=== PATIENT | female | born 1935 | race Caucasian/White ===

== ENCOUNTER 2016-11-08 15:22 | Inpatient (IN) ==
[2016-11-09] MEDS: Gabapentin 300 MG CAPSULE PO SCH (19:49)
[2016-11-10 05:18] LABS: Prothrombin Time 10.8 Seconds (9.4-12.1)
[2016-11-10 05:19] LABS: Basophils # 0.1 K/mcL (0.0-0.2); Basophils % 1.2 %; Eosinophils # 0.3 K/mcL (0.0-0.6); Hematocrit 37.2 % (35.3-44.9); Hemoglobin 11.9 g/dL (11.5-15.4); Immature Granulocytes % 0.2 % (0-4); Lymphocytes # 1.7 K/mcL (0.6-4.6); Lymphocytes % 34.4 %; Mean Corpuscular Hemoglobin 29.8 pg (28.0-33.3); Mean Corpuscular Volume 93.2 fL (83.0-100.0); Mean Platelet Volume 10.6 fL (9.4-12.4); Monocytes # 0.5 K/mcL (0.0-1.3); Monocytes % 10.3 %; Neutrophils # 2.4 K/mcL (1.6-8.9); Platelet Count 198 K/mcL (140-400); Red Blood Count 3.99 M/mcL (3.82-4.97); Red Cell Distribution Width 14.5 % (11.5-14.5); Segmented Neutrophils % 48.9 %
[2016-11-10 05:21] LABS: Activated Partial Thrombo Time 28.7 Seconds (26.0-36.0)
[2016-11-10 05:28] LABS: Calcium 9.1 mg/dL (8.6-10.8); Potassium 4.8 mEq/L (3.5-4.5)
[2016-11-10] MEDS: Metoprolol XL (24 HR) Succ 50 MG TAB.ER.24H PO SCH (07:48)
[2016-11-10] MEDS: Gabapentin 300 MG CAPSULE PO SCH ×3 (07:49→21:34)
[2016-11-10] MEDS: Cholecalciferol (D-3) 1,000 UNIT TABLET PO SCH (07:49)
[2016-11-10] MEDS: Aspirin 81 MG TAB.CHEW PO SCH (07:49)
[2016-11-10] MEDS: Lisinopril 20 MG TABLET PO SCH (07:50)
--- NOTE | 2016-11-10 11:12 | Internal Med History&Physical ---
Date of Encounter: 11/10/16 Time of Encounter: 11:10 Assessment and Plan (1) Cerebrovascular accident Current visit: No Status: Acute Patient's here for rehabilitation status post CVA. She will see PT OT TR and speech. Qualifiers: CVA mechanism: unspecified Qualified Code(s): I63.9 - Cerebral infarction, unspecified (2) Hypertension Current visit: No Status: Chronic Blood pressures controlled Qualifiers: Hypertension type: essential hypertension Qualified Code(s): I10 - Essential (primary) hypertension Internal Medicine - H&P: HPI Admitted From: Hospital to Hospital Transfer Plans for Post Hospital Care: Home History of present illness: Ms. Tang is a 81 year old female Past Med Surg Social Fam HX - Past Medical History Medical history: arthritis, atrial fibrillation, GERD, hypertension, peripheral artery disease, TIA Psychiatric history: depression - Past Surgical History Surgical History: vascular surgery - Social History Smoking Status: Current every day smoker Smokeless Tobacco Status: No Alcohol use: none Drug use: none - Family History Mother History Unknown: Yes Adopted: No Age: 73 Living Status: Hx Family Cancer: Yes Internal Medicine - H&P: Meds Atorvastatin Calcium [Lipitor] 80 mg PO HS 01/19/16 [History] Lisinopril [Zestril] 40 mg PO DAILY 01/19/16 [History] Metoprolol XL (24 HR) Succ [Toprol Xl] 50 mg PO DAILY 01/19/16 [History] Omeprazole [PriLOSEC] 20 mg PO DAILY 01/19/16 [History] Oxycodone HCl/Acetaminophen [Percocet 5-325 mg Tablet] 1 tab PO Q8H PRN [History] Rivaroxaban [Xarelto] 20 mg PO DAILY 01/19/16 [History] Ergocalciferol (VITAMIN D2) [Vitamin D2] 50,000 unit PO QWEEK 11/03/16 [History] Ferrous Sulfate 325 mg PO BID 11/05/16 [History] Gabapentin [Neurontin] 300 mg PO TID 11/05/16 [History] Aspirin 81 mg PO DAILY #30 tab.chew 11/09/16 [Rx] Allergies Erythromycin Base Allergy (Verified 11/05/16 15:53) Rash All Systems PM: A 10-system review of systems was performed and is negative for pertinent findings except as documented above in the HPI. - Constitutional Vitals: Temp Pulse Resp BP Pulse Ox 97.9 F 62 16 138/72 97 11/10/16 06:57 11/10/16 06:57 11/10/16 06:57 11/10/16 08:38 11/10/16 06:57 - Head Head exam: Present: atraumatic, normocephalic - Neck Neck exam general surgery: Present: supple, trachea midline. Absent: lymphadenopathy - Respiratory Respiratory exam: Present: CTAB. Absent: accessory muscle use, rales, rhonchi, wheezes - Cardiovascular Cardiovascular exam: Present: RRR, +S1, +S2. Absent: diastolic murmur, gallop, rubs, systolic murmur - GI/Abdominal GI/Abdominal exam: Present: normal bowel sounds, soft, no peritoneal signs. Absent: distended, tenderness Internal Med - H&P Results - Labs CBC & Chem 7: 11/10/16 05:05 11/10/16 05:05 Labs: Short CBC 11/10/16 Range/Units 05:05 WBC 5.0 (4.3-11.1) K/mcL Hgb 11.9 (11.5-15.4) g/dL Hct 37.2 (35.3-44.9) % Plt Count 198 (140-400) K/mcL Neutrophils # 2.4 (1.6-8.9) K/mcL BMP 11/10/16 05:05 Sodium 141 Potassium 4.8 H Chloride 110 H Carbon Dioxide 21 BUN 41 H D Creatinine 1.45 H Glucose 87 Calcium 9.1 Cardiac Enzymes 11/10/16 Range/Units 08:55 Troponin I 0.01 (0-0.03) ng/mL BUN creatinine little bit elevated we will keep an eye on that. Troponin was negative
--- NOTE | 2016-11-10 14:43 | Physcial Medicine-Consult Note ---
Date of Encounter: 11/10/16 Time of Encounter: 14:38 Physical Medicine - AP (1) Cerebrovascular accident Status: Acute Assessment and plan: 1. Ms. Tang has had improvement in function since her CVA. She is progressing well with therapies. We will continue with intensive PT/OT/TR. She will continue with aspirin 81mg daily and xarelto. Estimated length of stay 7-10 days. Code(s): I63.9 - Cerebral infarction, unspecified SNOMED Code(s): 165055267 Physical Medicine - HPI - Data of Consult Consult date: 11/10/16 Requesting Physician: Grant Cisneros DO [facility] Narrative Reason for consult: CVA History of present illness: Ms. Tang is a 81 year old female who presented to the ER on 11/05/16 at [place] with acute onset of right sided weakness and aphasia. Patient was driving her car at the time. Patient has a history of atrial fibrillation and had been on xarelto, but discontinued the medication against medical advice. Patient was a candidate for tPA, but declined due to the associated risk factors. An initial head CT revealed no acute abnormality. MRI of the brain revealed an acute infarct in the posterior left frontal periventricular white matter. She was stabilized and transferred for inpatient rehabilitation. CC: Grant Cisneros DO Past Med Surg Social Fam HX - Past Medical History Medical history: arthritis, atrial fibrillation, GERD, hypertension, peripheral artery disease, TIA Psychiatric history: depression - Past Surgical History Surgical History: vascular surgery - Social History Smoking Status: Current every day smoker Smokeless Tobacco Status: No Alcohol use: none Drug use: none - Family History Mother History Unknown: Yes Adopted: No Age: 73 Living Status: Hx Family Cancer: Yes Medications and Allergies Atorvastatin Calcium [Lipitor] 80 mg PO HS 01/19/16 [History] Lisinopril [Zestril] 40 mg PO DAILY 01/19/16 [History] Metoprolol XL (24 HR) Succ [Toprol Xl] 50 mg PO DAILY 01/19/16 [History] Omeprazole [PriLOSEC] 20 mg PO DAILY 01/19/16 [History] Oxycodone HCl/Acetaminophen [Percocet 5-325 mg Tablet] 1 tab PO Q8H PRN [History] Rivaroxaban [Xarelto] 20 mg PO DAILY 01/19/16 [History] Ergocalciferol (VITAMIN D2) [Vitamin D2] 50,000 unit PO QWEEK 11/03/16 [History] Ferrous Sulfate 325 mg PO BID 11/05/16 [History] Gabapentin [Neurontin] 300 mg PO TID 11/05/16 [History] Aspirin 81 mg PO DAILY #30 tab.chew 11/09/16 [Rx] Allergies Erythromycin Base Allergy (Verified 11/05/16 15:53) Rash - Constitutional Constitutional: Absent: anorexia, chills, daytime sleepiness, fatigue - Cardiovascular Cardiovascular: Absent: chest pain, dyspnea - Respiratory Respiratory: Absent: dyspnea, dyspnea on exertion - Gastrointestinal Gastrointestinal: Absent: abdominal pain, constipation, diarrhea, nausea - Genitourinary Genitourinary: Absent: urinary incontinence - Musculoskeletal Musculoskeletal: Present: muscle weakness - Neurological Neurological: Absent: loss of vision, other visual disturbances Physical Medicine - Exam - Constitutional Vitals: Temp Pulse Resp BP Pulse Ox 97.9 F 62 16 138/72 97 11/10/16 06:57 11/10/16 06:57 11/10/16 06:57 11/10/16 11:02 11/10/16 06:57 General appearance: cooperative, no acute distress Exam: Patient is alert, oriented to person and place. She answers questions appropriately. She is able to follow multistep commands. - Head Additional comments: No facial droop. - Respiratory Respiratory exam: Present: CTAB - Cardiovascular Cardiovascular exam: Present: RRR - GI/Abdominal GI/Abdominal exam: Present: normal bowel sounds, soft. Absent: tenderness - Extremities Exam Extremities exam: Absent: calf tenderness, tenderness - Neurological Exam Neurological exam: Present: oriented X3 Additional comments: Cranial nerves II-XII intact. No facial droop. EOMI intact. No visual field deficits. Reflexes are absent symmetrically in the upper and lower limbs. Motor strength is 5/5 in the left upper limb. Right upper limb motor strength reveals SA 5/5, EF 4/5, EE 4/5, WE 4/5, HI 4-5. Right lower limb strength is 5/ 5. Patient is able to ambulate 150 feet with a wheeled walker with min assist. Physical Medicine - Results - Labs CBC & Chem 7: 11/10/16 05:05 11/10/16 05:05 Labs: Short CBC 11/10/16 Range/Units 05:05 WBC 5.0 (4.3-11.1) K/mcL Hgb 11.9 (11.5-15.4) g/dL Hct 37.2 (35.3-44.9) % Plt Count 198 (140-400) K/mcL Neutrophils # 2.4 (1.6-8.9) K/mcL BMP 11/10/16 05:05 Sodium 141 Potassium 4.8 H Chloride 110 H Carbon Dioxide 21 BUN 41 H D Creatinine 1.45 H Glucose 87 Calcium 9.1 Cardiac Enzymes 11/10/16 Range/Units 08:55 Troponin I 0.01 (0-0.03) ng/mL Consult Discharge Plan - Plan Referrals: Ginger Woodson MD [Primary Care Provider] -
[2016-11-10] MEDS: *HR* OxyCODONE/APAP 5/325 TABLET PO PRN (15:36)
[2016-11-10] MEDS: *HR* Rivaroxaban 15 MG TABLET PO SCH (17:19)
[2016-11-11] MEDS: *HR* OxyCODONE/APAP 5/325 TABLET PO PRN ×3 (00:32→19:29)
[2016-11-11] MEDS: Aspirin 81 MG TAB.CHEW PO SCH (08:38)
[2016-11-11] MEDS: Cholecalciferol (D-3) 1,000 UNIT TABLET PO SCH (08:38)
[2016-11-11] MEDS: Gabapentin 300 MG CAPSULE PO SCH ×3 (08:38→19:29)
[2016-11-11] MEDS: Metoprolol XL (24 HR) Succ 50 MG TAB.ER.24H PO SCH (08:38)
[2016-11-11] MEDS: Lisinopril 20 MG TABLET PO SCH (08:38)
--- NOTE | 2016-11-11 10:43 | Electrocardiograph Report ---
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
--- NOTE | 2016-11-11 12:52 | Internal Med Progress Note ---
Date of Encounter: 11/11/16 Time of Encounter: 12:51 - Assessment and plan (1) Cerebrovascular accident Current Visit: No Status: Acute Qualifiers: CVA mechanism: unspecified Qualified Code(s): I63.9 - Cerebral infarction, unspecified (2) Hypertension Current Visit: No Status: Chronic Assessment and plan: Pressures well controlled Qualifiers: Hypertension type: essential hypertension Qualified Code(s): I10 - Essential (primary) hypertension - Time Spent With Patient less than 15 minutes - Subjective Interval history: Patient is a high functioning level. Working with PT OT TR and speech. - Constitutional Vitals: Temp Pulse Resp BP Pulse Ox 97.4 F L 58 20 112/64 93 11/11/16 06:51 11/11/16 06:51 11/11/16 06:51 11/11/16 06:51 11/11/16 06:51 - Head Head exam: Present: atraumatic, normal inspection, normocephalic - Neck Neck exam general surgery: Present: supple, trachea midline. Absent: lymphadenopathy - Respiratory Respiratory exam: Present: CTAB. Absent: accessory muscle use, rales, rhonchi, wheezes - Cardiovascular Cardiovascular exam: Present: RRR, +S1, +S2. Absent: diastolic murmur, gallop, rubs, systolic murmur - GI/Abdominal GI/Abdominal exam: Present: normal bowel sounds, soft, no peritoneal signs. Absent: distended, tenderness Internal Medicine: Result - Labs CBC & Chem 7: 11/10/16 05:05 11/10/16 05:05 Labs: I will recheck chemistry his BUN and creatinine the only issues - ABG Interpretation ABG results: PT/INR, D-dimer PT 10.8 Seconds (9.4-12.1) 11/10/16 05:05 Consult Discharge Plan - Plan Referrals: Ginger Woodson MD [Primary Care Provider] -
[2016-11-11] MEDS: *HR* Rivaroxaban 15 MG TABLET PO SCH (16:23)
[2016-11-12 05:39] LABS: Calcium 8.4 mg/dL (8.6-10.8); Potassium 5.3 mEq/L (3.5-4.5)
[2016-11-12] MEDS: Aspirin 81 MG TAB.CHEW PO SCH (08:18)
[2016-11-12] MEDS: Gabapentin 300 MG CAPSULE PO SCH ×3 (08:18→20:21)
[2016-11-12] MEDS: Lisinopril 20 MG TABLET PO SCH (08:19)
[2016-11-12] MEDS: Cholecalciferol (D-3) 1,000 UNIT TABLET PO SCH (08:19)
[2016-11-12] MEDS: Metoprolol XL (24 HR) Succ 50 MG TAB.ER.24H PO SCH (08:19)
[2016-11-12] MEDS: *HR* OxyCODONE/APAP 5/325 TABLET PO PRN ×2 (11:52→20:21)
--- NOTE | 2016-11-12 13:18 | Internal Med Progress Note ---
Date of Encounter: 11/12/16 Time of Encounter: 13:14 - Assessment and plan (1) Cerebrovascular accident Current Visit: Yes Status: Acute Assessment and plan: Patient's working with PT OT and TR. Taking the progress Qualifiers: CVA mechanism: unspecified Qualified Code(s): I63.9 - Cerebral infarction, unspecified (2) Hypertension Current Visit: No Status: Chronic Assessment and plan: Blood pressures well controlled Qualifiers: Hypertension type: essential hypertension Qualified Code(s): I10 - Essential (primary) hypertension - Time Spent With Patient less than 15 minutes - Subjective Interval history: Patient is a high functioning level. Working with PT OT TR and speech. - Constitutional Vitals: Temp Pulse Resp BP Pulse Ox 98.6 F 62 18 111/55 94 11/12/16 07:04 11/12/16 07:04 11/12/16 07:04 11/12/16 07:04 11/12/16 07:04 - Head Head exam: Present: atraumatic, normal inspection, normocephalic - Neck Neck exam general surgery: Present: supple, trachea midline. Absent: lymphadenopathy - Respiratory Respiratory exam: Present: CTAB. Absent: accessory muscle use, rales, rhonchi, wheezes - Cardiovascular Cardiovascular exam: Present: RRR, +S1, +S2. Absent: diastolic murmur, gallop, rubs, systolic murmur Internal Medicine: Result - Labs CBC & Chem 7: 11/10/16 05:05 11/12/16 05:20 Labs: BMP 11/12/16 05:20 Sodium 141 Potassium 5.3 H Chloride 111 H Carbon Dioxide 22 BUN 57 H D Creatinine 1.63 H Glucose 89 Calcium 8.4 L Is BUN and creatinine are noted - ABG Interpretation ABG results: PT/INR, D-dimer PT 10.8 Seconds (9.4-12.1) 11/10/16 05:05 Consult Discharge Plan - Plan Referrals: Ginger Woodson MD [Primary Care Provider] -
[2016-11-12] MEDS: *HR* Rivaroxaban 15 MG TABLET PO SCH (17:20)
[2016-11-12] MEDS: Nitroglycerin 0.4 MG TAB.SUBL SL PRN ×2 (22:30→22:45)
[2016-11-12] MEDS ORDERED: Nitroglycerin 1 INCH/GM PACKET TP ONE (23:53)
[2016-11-12] MEDS ORDERED: Aspirin Enteric Coated 325 MG Tablet PO ONE (23:53)
[2016-11-12] MEDS ORDERED: Aspirin 325 MG TABLET PO STA (23:58)
[2016-11-13] MEDS ORDERED: Aspirin 81 MG TAB.CHEW PO STA (00:02)
--- NOTE | 2016-11-13 00:29 | Emergency Department Note ---
Disposition Clinical Impression: Elevated troponin level Chest pain Qualifiers: Chest pain type: unspecified Qualified Code(s): R07.9 - Chest pain, unspecified Disposition: Transfer Short-Term Hosp Time of Disposition: 00:30 Chest Pain HPI - General Source: patient Vital Signs Reviewed: Yes - History of Present Illness HPI Narrative: I was called to the patient's bedside where she is in rehabilitation. The nursing there is a bedside indicated that the patient had had chest pain this evening starting about 1025. This patient had been hospitalized at [facility] for a CVA last week. She was transferred for rehabilitation back here to [place] on the of this month. Nursing indicates that on the she had an hour and a half of chest pain, troponin was normal, and she was kept here for persistent rehabilitation. This evening at 1025 she began having midsternal chest pain with some radiation into her arm. She has a history of atrial fibrillation and is on Xarelto but has not had coronary artery disease that she is aware of. Record review however reveals that she has this in her diagnosis of CAD. Patient has a history of atrial fib. She has pulmonary hypertension. She reported after one nitroglycerin that her chest pain was gone. She had a normal physical examination for me. Awake, alert, conversational, appropriate, comfortable appearing, no carotid bruits, skin normal color without diaphoresis. Lungs diminished at the bases. Patient has a history of COPD. Heart: Normal heart tones without murmur. Irregular periods slow. Abdomen soft active bowel sounds. Body habitus elderly and frail. Risks for coronary disease. Patient has hypercholesterolemia and hypertension with smoking history and COPD. Family medical history unknown. Patient's troponin was elevated at 0.12. I evaluated to EKGs and compared them with old ones. First EKG was done on November 10 which apparently was when she of the first episode of pain. It shows atrial fibrillation with a rate of 51 and no evidence of acute ST-T wave changes. Second EKG evaluated was done tonight at 2128. Which I believe would probably be 20-29 since her pain did not start until 10:30. It also shows atrial fib with nonspecific changes laterally without evidence of ST elevation or signs of acute ischemia. Nursing had spoken with Dr. Kimball the patient's current physician in rehabilitation and he had requested that I see the patient and organize transfer. I have discussed the patient with Dr. walls hospitalist at [facility] we talked about possible heparinization but the patient is on Xarelto. He requested that she be transferred to the heart floor and agreed to accept the patient in transfer. Pt complaint: chest pain - Related Data Home Medications Medication Instructions Recorded Confirmed Atorvastatin Calcium [Lipitor] 80 mg PO HS 01/19/16 11/09/16 Lisinopril [Zestril] 40 mg PO DAILY 01/19/16 11/09/16 Metoprolol XL (24 HR) Succ [Toprol 50 mg PO DAILY 01/19/16 11/09/16 Xl] Omeprazole [PriLOSEC] 20 mg PO DAILY 01/19/16 11/09/16 Oxycodone HCl/Acetaminophen 1 tab PO Q8H PRN 01/19/16 11/09/16 [Percocet 5-325 mg Tablet] Rivaroxaban [Xarelto] 20 mg PO DAILY 01/19/16 11/09/16 Ergocalciferol (VITAMIN D2) 50,000 unit PO QWEEK 11/03/16 11/09/16 [Vitamin D2] Ferrous Sulfate 325 mg PO BID 11/05/16 11/09/16 Gabapentin [Neurontin] 300 mg PO TID 11/05/16 11/09/16 Previous Rx's Medication Instructions Recorded Aspirin 81 mg PO DAILY #30 tab.chew 11/09/16 Allergies Allergy/AdvReac Type Severity Reaction Status Date / Time Erythromycin Base Allergy Rash Verified 11/05/16 15:53 Chest Pain PMH - Past Medical History Medical history: Reports: arthritis, atrial fibrillation, GERD, hypertension, peripheral artery disease, TIA Surgical history: Reports: vascular surgery Psychiatric history: Reports: depression - Social History Smoking Status: Current every day smoker Alcohol use: Reports: none Drug use: Reports: none Course Vital Signs Temperature 98.1 F 11/09/16 17:06 Pulse Rate 68 11/09/16 17:06 Respiratory Rate 11/09/16 17:06 Blood Pressure 160/76 11/09/16 17:06 O2 Sat by Pulse Oximetry 95 11/09/16 17:06 Temperature 97.5 F L 11/12/16 19:44 Pulse Rate 70 11/12/16 19:44 Respiratory Rate 16 11/12/16 19:44 Blood Pressure 125/57 11/12/16 19:44 O2 Sat by Pulse Oximetry 96 11/12/16 19:44 Chest Pain - Lab Data Result diagrams: 11/10/16 05:05 11/12/16 05:20 Lab Results 11/10/16 11/10/16 11/10/16 Range/Units 05:05 05:05 05:05 WBC 5.0 (4.3-11.1) K/mcL RBC 3.99 (3.82-4.97) M/mcL Hgb 11.9 (11.5-15.4) g/dL Hct 37.2 (35.3-44.9) % MCV 93.2 (83.0-100.0) fL MCH 29.8 (28.0-33.3) pg MCHC 32.0 (31.6-35.5) g/dL RDW 14.5 (11.5-14.5) % Plt Count 198 (140-400) K/mcL MPV 10.6 (9.4-12.4) fL Immature Gran % 0.2 (0-4) % Seg Neutrophils % 48.9 % Lymphocytes % 34.4 % Monocytes % 10.3 % Eosinophils % 5.0 % Basophils % 1.2 % Neutrophils # 2.4 (1.6-8.9) K/mcL Lymphocytes # 1.7 (0.6-4.6) K/mcL Monocytes # 0.5 (0.0-1.3) K/mcL Eosinophils # 0.3 (0.0-0.6) K/mcL Basophils # 0.1 (0.0-0.2) K/mcL PT 10.8 (9.4-12.1) Seconds INR 1.0 APTT 28.7 (26.0-36.0) Seconds Sodium 141 (136-145) mEq/L Potassium 4.8 H (3.5-4.5) mEq/L Chloride 110 H (98-109) mEq/L Carbon Dioxide 21 (19-29) mEq/L BUN 41 H D (7-20) mg/dL Creatinine 1.45 H (0.57-1.11) mg/dL Est GFR ( Amer) 42 L (> 60) Est GFR (Non-Af Amer) 34 L (> 60) BUN/Creatinine Ratio 28 H (6-26) Glucose 87 (70-99) mg/dL Calculated Osmolality 301 H (280-300) Calcium 9.1 (8.6-10.8) mg/dL Troponin I (0-0.03) ng/mL 11/10/16 11/12/16 11/12/16 Range/Units 08:55 05:20 22:50 WBC (4.3-11.1) K/mcL RBC (3.82-4.97) M/mcL Hgb (11.5-15.4) g/dL Hct (35.3-44.9) % MCV (83.0-100.0) fL MCH (28.0-33.3) pg MCHC (31.6-35.5) g/dL RDW (11.5-14.5) % Plt Count (140-400) K/mcL MPV (9.4-12.4) fL Immature Gran % (0-4) % Seg Neutrophils % % Lymphocytes % % Monocytes % % Eosinophils % % Basophils % % Neutrophils # (1.6-8.9) K/mcL Lymphocytes # (0.6-4.6) K/mcL Monocytes # (0.0-1.3) K/mcL Eosinophils # (0.0-0.6) K/mcL Basophils # (0.0-0.2) K/mcL PT (9.4-12.1) Seconds INR APTT (26.0-36.0) Seconds Sodium 141 (136-145) mEq/L Potassium 5.3 H (3.5-4.5) mEq/L Chloride 111 H (98-109) mEq/L Carbon Dioxide 22 (19-29) mEq/L BUN 57 H D (7-20) mg/dL Creatinine 1.63 H (0.57-1.11) mg/dL Est GFR ( Amer) 37 L (> 60) Est GFR (Non-Af Amer) 30 L (> 60) BUN/Creatinine Ratio 35 H (6-26) Glucose 89 (70-99) mg/dL Calculated Osmolality 307 H (280-300) Calcium 8.4 L (8.6-10.8) mg/dL Troponin I 0.01 0.12 H* (0-0.03) ng/mL
[2016-11-13 00:36] LABS: INR 1.8; Prothrombin Time 19.6 Seconds (9.4-12.1)
[2016-11-13 00:40] LABS: Basophils # 0.1 K/mcL (0.0-0.2); Basophils % 1.2 %; Eosinophils # 0.2 K/mcL (0.0-0.6); Eosinophils % 4.1 %; Hematocrit 33.2 % (35.3-44.9); Hemoglobin 10.6 g/dL (11.5-15.4); Immature Granulocytes % 0.5 % (0-4); Lymphocytes # 1.6 K/mcL (0.6-4.6); Lymphocytes % 26.3 %; Mean Corpuscular HGB Conc 31.9 g/dL (31.6-35.5); Mean Corpuscular Volume 94.1 fL (83.0-100.0); Mean Platelet Volume 10.9 fL (9.4-12.4); Monocytes # 0.7 K/mcL (0.0-1.3); Monocytes % 11.2 %; Neutrophils # 3.3 K/mcL (1.6-8.9); Platelet Count 201 K/mcL (140-400); Red Blood Count 3.53 M/mcL (3.82-4.97); Red Cell Distribution Width 15.2 % (11.5-14.5); Segmented Neutrophils % 56.7 %
[2016-11-13 00:45] LABS: Albumin 2.9 g/dL (3.5-5.0); Albumin/Globulin Ratio 0.8 (1.1-2.2); Bilirubin,Total 0.2 mg/dL (0.2-1.2); Calcium 8.4 mg/dL (8.6-10.8); Globulin 3.5 g/dL (2.4-3.5); Potassium 5.2 mEq/L (3.5-4.5); Total Protein 6.4 g/dL (6.0-8.3)
[2016-11-13 02:30] VITALS: BP 122/55
--- NOTE | 2016-11-15 16:42 | Electrocardiograph Report ---
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
--- NOTE | 2016-12-13 12:28 | Discharge Summary ---
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 (2) Hypertension Priority: Secondary Status: Chronic Qualifiers: Hypertension type: essential hypertension Qualified Code(s): I10 - Essential (primary) hypertension - Discharge Medications Home Medications: Oxycodone HCl/Acetaminophen [Percocet 5-325 mg Tablet] 1 tab PO Q8H PRN [History] Ergocalciferol (VITAMIN D2) [Vitamin D2] 50,000 unit PO QWEEK 11/03/16 [History] Ferrous Sulfate 325 mg PO BID 11/05/16 [History] Gabapentin [Neurontin] 300 mg PO TID 11/05/16 [History] Aspirin 81 mg PO DAILY #30 tab.chew 11/09/16 [Rx] Sertraline [Zoloft] 100 mg PO DAILY 11/13/16 [History] Atorvastatin [Lipitor] 80 mg PO HS tablet 11/15/16 [Rx] Loratadine [Claritin] 10 mg PO DAILY tablet 11/15/16 [Rx] Metoprolol XL (24 HR) Succ [Toprol Xl] 25 mg PO DAILY tab.er.24h 11/15/16 [Rx] Nitroglycerin 0.4 mg SL Q5MIN PRN #0 tab.subl 11/15/16 [Rx] Omeprazole [PriLOSEC] 20 mg PO DAILY@0630 capsule.dr 11/15/16 [Rx] OxyCODONE/APAP 5/325 [Percocet 5/325 MG] 1 each PO Q8H PRN #6 tablet 11/15/16 [ Rx] Rivaroxaban [Xarelto] 15 mg PO DAILY tablet 11/15/16 [Rx] amLODIPine [Norvasc] 10 mg PO DAILY tablet 11/15/16 [Rx] Allergies/Adverse Reactions: Allergies Erythromycin Base Allergy (Verified 12/07/16 20:28) Rash Date of admission: 11/09/16 16:33 Primary care physician: Ginger [facility] Consults: 11/09/16 16:46 Consult to Occupational Therapy [CONS] Routine Comment: Evaluate, develop and implement POC Reason for Consult: eval and treat Consult to Physical Therapy [CONS] Routine Comment: Evaluate, develop and implement POC Reason for Consult: eval and treat Consult to Recreational Therapy [CONS] Routine Comment: Evaluate, develop and implement POC Consult to Tire Design Engineer [CONS] Routine Reason for SW Consult: for discharge planning Consult to Speech Therapy [CONS] Routine Comment: Evaluate, develop and implement POC Reason for Consult: speech impairment Call Completed: Yes Discharging clinician: Grant Cisneros Anticipated date of discharge: 11/13/16 - Patient Status Disposition: Transfer Short-Term Hosp Functional capacity at discharge: uses cane/walker Overall status at discharge: patient is not back to baseline - Discharge Instructions Follow Up With: Ginger Woodson MD [Primary Care Provider] - - Diet and Activity Activity: ambulate only with your walker Diet: advance to your usual diet Hospital course: Ms. Tang is a 81 year old female - Time Spent with Patient Total time spent providing and/or coordinating discharge services: - Constitutional Vitals: Temp Pulse Resp BP Pulse Ox 98.3 F 48 15 122/55 95 11/13/16 02:26 11/13/16 02:26 11/13/16 02:26 11/13/16 02:26 11/13/16 02:26 - Stroke Contraindication Rehab Services Not Assessed: Refused by Patient / Family
== END 2016-11-13 03:00 | disposition short-term general hospital (02) | DRG 57 ==
LOC: INPGRE 11-09 16:33
PROVIDERS: ADMIT Internal Medicine; ATTEND Internal Medicine

== ENCOUNTER 2016-11-15 14:09 | Inpatient (IN) ==
[2016-11-16] MEDS ORDERED: Nitroglycerin 0.4 MG TAB.SUBL SL PRN (16:45)
[2016-11-16] MEDS ORDERED: Cholecalciferol (D-3) 1,000 UNIT TABLET PO SCH (16:45)
[2016-11-16] MEDS: Gabapentin 300 MG CAPSULE PO SCH (20:22)
[2016-11-16] MEDS: *HR* OxyCODONE/APAP 5/325 TABLET PO PRN (23:18)
[2016-11-17 06:03] LABS: INR 1.2; Prothrombin Time 13.1 Seconds (9.4-12.1)
[2016-11-17 06:06] LABS: Activated Partial Thrombo Time 33.2 Seconds (26.0-36.0)
[2016-11-17 06:12] LABS: Calcium 8.5 mg/dL (8.6-10.8); Potassium 5.4 mEq/L (3.5-4.5)
[2016-11-17 06:20] LABS: Basophils % 0.8 %; Eosinophils # 0.3 K/mcL (0.0-0.6); Eosinophils % 6.1 %; Hemoglobin 8.6 g/dL (11.5-15.4); Immature Granulocytes % 0.4 % (0-4); Lymphocytes # 1.5 K/mcL (0.6-4.6); Lymphocytes % 31.7 %; Mean Corpuscular HGB Conc 33.1 g/dL (31.6-35.5); Mean Corpuscular Hemoglobin 31.2 pg (28.0-33.3); Mean Corpuscular Volume 94.2 fL (83.0-100.0); Monocytes # 0.6 K/mcL (0.0-1.3); Monocytes % 12.6 %; Neutrophils # 2.3 K/mcL (1.6-8.9); Platelet Count 213 K/mcL (140-400); Red Blood Count 2.76 M/mcL (3.82-4.97); Red Cell Distribution Width 15.1 % (11.5-14.5); Segmented Neutrophils % 48.4 %
[2016-11-17] MEDS: *HR* Rivaroxaban 15 MG TABLET PO SCH (10:00)
[2016-11-17] MEDS: amLODIPine 5 MG TABLET PO SCH (10:00)
[2016-11-17] MEDS: Metoprolol XL (24 HR) Succ 25 MG TAB.ER.24H PO SCH (10:00)
[2016-11-17] MEDS: Loratadine 10 MG TABLET PO SCH (10:00)
[2016-11-17] MEDS: Gabapentin 300 MG CAPSULE PO SCH ×3 (10:01→21:15)
[2016-11-17] MEDS: Cholecalciferol (D-3) 1,000 UNIT TABLET PO SCH (10:01)
[2016-11-17] MEDS: Aspirin 81 MG TAB.CHEW PO SCH (10:01)
--- NOTE | 2016-11-17 11:50 | Internal Med History&Physical ---
Date of Encounter: 11/17/16 Time of Encounter: 11:47 Assessment and Plan (1) Cerebrovascular accident Current visit: No Status: Chronic Patient was initially sent here for CVA. She is doing fairly well. Blood experience chest pain. 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 (2) Hypertension Current visit: No Status: Chronic Her pressure is well-controlled Qualifiers: Hypertension type: essential hypertension Qualified Code(s): I10 - Essential (primary) hypertension (3) Atrial fibrillation Current visit: No Status: Chronic Currently seems irregular with no excessive heart rate Qualifiers: Atrial fibrillation type: chronic Qualified Code(s): I48.2 - Chronic atrial fibrillation (4) Confusion Current visit: No Status: Acute Patient is generally alert and oriented Internal Medicine - H&P: HPI Admitted From: Hospital to Hospital Transfer Plans for Post Hospital Care: Home History of present illness: Ms. Tang is a 81 year old female Past Med Surg Social Fam HX - Past Medical History Medical history: arthritis, atrial fibrillation, COPD, CVA, GERD, hypertension, peripheral artery disease, renal disease, TIA Psychiatric history: depression - Past Surgical History Surgical History: angioplasty/stent, vascular surgery - Social History Smoking Status: Current every day smoker Smokeless Tobacco Status: No Alcohol use: none Drug use: none - Family History Mother Adopted: No Living Status: Hx Family Cardiac Disorders: No Hx Family Respiratory Disorders: No Hx Family Cancer: Yes Hx Family GI Disorders: Yes Internal Medicine - H&P: Meds Oxycodone HCl/Acetaminophen [Percocet 5-325 mg Tablet] 1 tab PO Q8H PRN [History] Ergocalciferol (VITAMIN D2) [Vitamin D2] 50,000 unit PO QWEEK 11/03/16 [History] Ferrous Sulfate 325 mg PO BID 11/05/16 [History] Gabapentin [Neurontin] 300 mg PO TID 11/05/16 [History] Aspirin 81 mg PO DAILY #30 tab.chew 11/09/16 [Rx] Sertraline [Zoloft] 100 mg PO DAILY 11/13/16 [History] Atorvastatin [Lipitor] 80 mg PO HS tablet 11/15/16 [Rx] Loratadine [Claritin] 10 mg PO DAILY tablet 11/15/16 [Rx] Metoprolol XL (24 HR) Succ [Toprol Xl] 25 mg PO DAILY tab.er.24h 11/15/16 [Rx] Nitroglycerin 0.4 mg SL Q5MIN PRN #0 tab.subl 11/15/16 [Rx] Omeprazole [PriLOSEC] 20 mg PO DAILY@0630 capsule.dr 11/15/16 [Rx] OxyCODONE/APAP 5/325 [Percocet 5/325 MG] 1 each PO Q8H PRN #6 tablet 11/15/16 [ Rx] Rivaroxaban [Xarelto] 15 mg PO DAILY tablet 11/15/16 [Rx] amLODIPine [Norvasc] 10 mg PO DAILY tablet 11/15/16 [Rx] Allergies Erythromycin Base Allergy (Verified 11/05/16 15:53) Rash All Systems PM: A 10-system review of systems was performed and is negative for pertinent findings except as documented above in the HPI. - Constitutional Vitals: Temp Pulse Resp BP Pulse Ox 97.5 F L 67 14 149/68 93 11/17/16 07:55 11/17/16 10:33 11/17/16 10:33 11/17/16 10:33 11/17/16 10:33 - Head Head exam: Present: atraumatic, normal inspection, normocephalic - Neck Neck exam general surgery: Present: supple, trachea midline. Absent: lymphadenopathy - Cardiovascular Cardiovascular exam: Present: RRR, +S1, +S2. Absent: diastolic murmur, gallop, rubs, systolic murmur Internal Med - H&P Results - Labs CBC & Chem 7: 11/17/16 05:45 11/17/16 05:45 Labs: Short CBC 11/17/16 Range/Units 05:45 WBC 4.8 (4.3-11.1) K/mcL Hgb 8.6 L (11.5-15.4) g/dL Hct 26.0 L (35.3-44.9) % Plt Count 213 (140-400) K/mcL Neutrophils # 2.3 (1.6-8.9) K/mcL BMP 11/17/16 05:45 Sodium 139 Potassium 5.4 H Chloride 111 H Carbon Dioxide 19 BUN 67 H Creatinine 1.55 H Glucose 85 Calcium 8.5 L Lab is noted to chronic renal failure is also noted.
[2016-11-17] MEDS: *HR* OxyCODONE/APAP 5/325 TABLET PO PRN (15:51)
--- NOTE | 2016-11-17 16:50 | Psychological Evaluation ---
Date of Encounter: 11/24/16 Time of Encounter: 10:00 History of Present Illness History of present illness: Ms. Tang is an 81 year old female admitted to [facility] following a stroke which affected her left side. She reported that she developed symptoms of a stroke while driving her daughter to a medical appointment and was fortunate to have been in the area of her own primary care physician. Ms. Tang was seen in an urgent care physician and transfered to a hospital immediately. She was seen on this date to assess her current cognitive and emotional functioning. Past Medical History Medical history: Significant for HTN, renal disease, peripheral artery disease, TIA, atrial fibrillation, GERD, COPD and arthritis. - Psychiatric History Additional Psychiatric History: Ms. Tang denied history of psychiatric hospitalization or mental health counseling. She reported that her primary care physician has prescribed Zoloft in the past when she has struggled with feelings of anger and has been under stress. There is no family history of psychiatric hospitalization or mental health issues. Home Medications and Allergies Oxycodone HCl/Acetaminophen [Percocet 5-325 mg Tablet] 1 tab PO Q8H PRN [History] Ergocalciferol (VITAMIN D2) [Vitamin D2] 50,000 unit PO QWEEK 11/03/16 [History] Ferrous Sulfate 325 mg PO BID 11/05/16 [History] Gabapentin [Neurontin] 300 mg PO TID 11/05/16 [History] Aspirin 81 mg PO DAILY #30 tab.chew 11/09/16 [Rx] Sertraline [Zoloft] 100 mg PO DAILY 11/13/16 [History] Atorvastatin [Lipitor] 80 mg PO HS tablet 11/15/16 [Rx] Loratadine [Claritin] 10 mg PO DAILY tablet 11/15/16 [Rx] Metoprolol XL (24 HR) Succ [Toprol Xl] 25 mg PO DAILY tab.er.24h 11/15/16 [Rx] Nitroglycerin 0.4 mg SL Q5MIN PRN #0 tab.subl 11/15/16 [Rx] Omeprazole [PriLOSEC] 20 mg PO DAILY@0630 capsule. 11/15/16 [Rx] OxyCODONE/APAP 5/325 [Percocet 5/325 MG] 1 each PO Q8H PRN #6 tablet 11/15/16 [ Rx] Rivaroxaban [Xarelto] 15 mg PO DAILY tablet 11/15/16 [Rx] amLODIPine [Norvasc] 10 mg PO DAILY tablet 11/15/16 [Rx] Allergies Erythromycin Base Allergy (Verified 11/05/16 15:53) Rash Social History - Social History Social History: Ms. Tang has been a twice. Her second in 1988. She had 6 children (5 daughters, one son). One of her daughters in 2008 of double pneumonia. One of Ms. Tang's twin daughters lives with her and a new grandbaby (6 days old). Ms. 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 The daughter who lives with her has had a brain aneurysm and relies on Mr. Tang for transportation needs. Ms. Tang reported that she does not have any hobbies or social life aside from family functions. Cognitive/Emotional Assessment - Cognitive Ability Additional Findings: Ms. Tang was alert, attentive and fully oriented. Speech was clear, effective and fluent. Thought processes were logical, coherent and goal- directed. She performed in the mildly impaired range on a measure of attention/ concentration. On a measure of delayed verbal recall, she performed in the moderately impaired range. She exhibited problems with encoding, storage and retrieval of new information. Her performance was increased with multiple choice (recognition) cueing. She performed in the average range on measures of sentence repetition, confrontational naming, mental arithmetic, verbal comprehension, abstract reasoning and social judgment. Ms. Tang appeared aware of her cognitive strengths and weaknesses. - Emotional Status Additional Findings: Ms. Tang was pleasant, friendly and cooperative. She described her mood as "good". She denied symptoms of depression or anxiety. Mood appeared euthymic and affect was appropriate in range and intensity. She offered no complaints except to report that she has a history of chronic back pain. Assessment & Plan - Diagnosis (1) Other specified mental disorders due to known physiological condition - Treatment Plan Treatment Plan/Recommendations: Ms. Tang is scheduled to be discharged home this afternoon. She appears to be coping well from an emotional perspective but is exhibiting some deficits with delayed verbal recall and some mild difficulty with attention/ concentration. We reviewed some compensatory strategies for her concentration and memory. There are no recommendations for additional psychological interventions. Procedures - Session Time Session Start Time: 10:00 Session Stop Time: 10:30
[2016-11-18] MEDS: Gabapentin 300 MG CAPSULE PO SCH ×3 (08:55→21:42)
[2016-11-18] MEDS: Cholecalciferol (D-3) 1,000 UNIT TABLET PO SCH (08:56)
[2016-11-18] MEDS: Loratadine 10 MG TABLET PO SCH (09:06)
[2016-11-18] MEDS: *HR* Rivaroxaban 15 MG TABLET PO SCH (09:06)
[2016-11-18] MEDS: Metoprolol XL (24 HR) Succ 25 MG TAB.ER.24H PO SCH (09:06)
[2016-11-18] MEDS: amLODIPine 5 MG TABLET PO SCH (09:06)
[2016-11-18] MEDS: Aspirin 81 MG TAB.CHEW PO SCH (09:06)
[2016-11-18] MEDS: *HR* OxyCODONE/APAP 5/325 TABLET PO PRN ×2 (09:16→23:15)
--- NOTE | 2016-11-18 13:20 | Internal Med Progress Note ---
Date of Encounter: 11/18/16 Time of Encounter: 13:18 - Assessment and plan (1) Cerebrovascular accident Current Visit: No Status: Chronic Assessment and plan: Patient is showing good progress on her rehabilitation from stroke. 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 (2) Hypertension Current Visit: No Status: Chronic Assessment and plan: Seems to be well-controlled Qualifiers: Hypertension type: essential hypertension Qualified Code(s): I10 - Essential (primary) hypertension (3) Atrial fibrillation Current Visit: No Status: Chronic Assessment and plan: No evidence of uncontrolled heart rate Qualifiers: Atrial fibrillation type: chronic Qualified Code(s): I48.2 - Chronic atrial fibrillation (4) Confusion Current Visit: No Status: Acute Assessment and plan: May be some early dementia with a general confusion I think his been pretty stable - Time Spent With Patient less than 15 minutes - Subjective Interval history: Ms. Rushing is cooperating in getting set up for discharge tomorrow - Constitutional Vitals: Temp Pulse Resp BP Pulse Ox 97.9 F 70 18 138/64 92 11/18/16 07:42 11/18/16 07:42 11/18/16 07:42 11/18/16 07:42 11/18/16 07:42 - Head Head exam: Present: atraumatic, normal inspection, normocephalic - Neck Neck exam general surgery: Present: supple, trachea midline. Absent: lymphadenopathy - Respiratory Respiratory exam: Present: CTAB. Absent: accessory muscle use, rales, rhonchi, wheezes - Skin Skin exam: Present: dry, intact Internal Medicine: Result - Labs CBC & Chem 7: 11/17/16 05:45 11/17/16 05:45 Labs: Lab was stable - ABG Interpretation ABG results: PT/INR, D-dimer PT 13.1 Seconds (9.4-12.1) H 11/17/16 05:45 Consult Discharge Plan - Plan Referrals: Ginger Woodson MD [Primary Care Provider] -
--- NOTE | 2016-11-18 13:51 | Physician Discharge Referral ---
Home Health/Hosp Referral Info Transfer to: Home Health Provider in Charge Post Discharge: PCP - Diagnosis (1) Cerebrovascular accident Priority: Primary Status: Chronic (2) Hypertension Priority: Secondary Status: Chronic (3) Atrial fibrillation Priority: Secondary Status: Chronic (4) Confusion Priority: Secondary Status: Acute - Respiratory Orders Smoking Cessation: Smoking cessation has been advised. For more information, call the [place] Tobacco Quit Line at 3-952-ZHEE-NOW. - Services Needed Following services are medically necessary services: Nursing, Physical Therapy - Transfer Medications Home Medications: Oxycodone HCl/Acetaminophen [Percocet 5-325 mg Tablet] 1 tab PO Q8H PRN [History] Ergocalciferol (VITAMIN D2) [Vitamin D2] 50,000 unit PO QWEEK 11/03/16 [History] Ferrous Sulfate 325 mg PO BID 11/05/16 [History] Gabapentin [Neurontin] 300 mg PO TID 11/05/16 [History] Aspirin 81 mg PO DAILY #30 tab.chew 11/09/16 [Rx] Sertraline [Zoloft] 100 mg PO DAILY 11/13/16 [History] Atorvastatin [Lipitor] 80 mg PO HS tablet 11/15/16 [Rx] Loratadine [Claritin] 10 mg PO DAILY tablet 11/15/16 [Rx] Metoprolol XL (24 HR) Succ [Toprol Xl] 25 mg PO DAILY tab.er.24h 11/15/16 [Rx] Nitroglycerin 0.4 mg SL Q5MIN PRN #0 tab.subl 11/15/16 [Rx] Omeprazole [PriLOSEC] 20 mg PO DAILY@0630 capsule. 11/15/16 [Rx] OxyCODONE/APAP 5/325 [Percocet 5/325 MG] 1 each PO Q8H PRN #6 tablet 11/15/16 [ Rx] Rivaroxaban [Xarelto] 15 mg PO DAILY tablet 11/15/16 [Rx] amLODIPine [Norvasc] 10 mg PO DAILY tablet 11/15/16 [Rx] Allergies/Adverse Reactions: Allergies Erythromycin Base Allergy (Verified 11/05/16 15:53) Rash Certification: Further, I certify that my clinical findings support that this patient is homebound (i.e. absences from home require considerable and taxing effort and are for medical reasons or mormon services or infrequently or short duration when for other reasons) because: Homebound Reason: Patient requires assistance of a person or device to safely leave home Attestation: My signature below is to certify that this patient is under my care and that I, or nurse practitioner, or a physician's community program assistant working with me, has a face-to -face encounter with this patient.
[2016-11-19 05:21] LABS: Hematocrit 24.1 % (35.3-44.9); Hemoglobin 7.8 g/dL (11.5-15.4); Mean Corpuscular HGB Conc 32.4 g/dL (31.6-35.5); Mean Corpuscular Volume 95.6 fL (83.0-100.0); Mean Platelet Volume 10.6 fL (9.4-12.4); Platelet Count 232 K/mcL (140-400); Red Blood Count 2.52 M/mcL (3.82-4.97)
[2016-11-19 05:34] LABS: Calcium 8.4 mg/dL (8.6-10.8); Potassium 5.2 mEq/L (3.5-4.5)
[2016-11-19 07:26] VITALS: BP 122/66
[2016-11-19] MEDS: Loratadine 10 MG TABLET PO SCH (08:27)
[2016-11-19] MEDS: Metoprolol XL (24 HR) Succ 25 MG TAB.ER.24H PO SCH (08:27)
[2016-11-19] MEDS: Gabapentin 300 MG CAPSULE PO SCH ×2 (08:27→14:55)
[2016-11-19] MEDS: Cholecalciferol (D-3) 1,000 UNIT TABLET PO SCH (08:27)
[2016-11-19] MEDS: Aspirin 81 MG TAB.CHEW PO SCH (08:27)
[2016-11-19] MEDS: amLODIPine 5 MG TABLET PO SCH (08:27)
[2016-11-19] MEDS: *HR* Rivaroxaban 15 MG TABLET PO SCH (08:33)
[2016-11-19] MEDS: *HR* OxyCODONE/APAP 5/325 TABLET PO PRN (09:52)
--- NOTE | 2016-11-19 16:06 | Electrocardiograph Report ---
[place] [id number] Test Date: 2016-11-12 Pat Name: Helen Tang Department: 2001 Room: 109 Gender: F Project Economist: [place] : 1935 Requested By: Grant Cisneros Order Number: [id number] Reading MD: Ginger Clancy Measurements Intervals [place] Rate: 65 P: [place]: 0 QRS: -12 QRSD: 77 T: 57 QT: 433 QTc: 444 Interpretive Statements ATRIAL FIBRILLATION SEPTAL MYOCARDIAL INFARCTION [40+ ms Q WAVE IN V1/V2], PROBABLY OLD Electronically Signed On 11-19-2016 16:04:17 EDT by Ginger Clancy
--- NOTE | 2016-12-02 16:17 | Discharge Summary ---
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 (2) Hypertension Priority: Secondary Status: Chronic Comments: Responded well to therapy Qualifiers: Hypertension type: essential hypertension Qualified Code(s): I10 - Essential (primary) hypertension (3) Atrial fibrillation Priority: Secondary Status: Chronic Qualifiers: Atrial fibrillation type: chronic Qualified Code(s): I48.2 - Chronic atrial fibrillation (4) Confusion Priority: Secondary Status: Acute - Discharge Medications Home Medications: Oxycodone HCl/Acetaminophen [Percocet 5-325 mg Tablet] 1 tab PO Q8H PRN [History] Ergocalciferol (VITAMIN D2) [Vitamin D2] 50,000 unit PO QWEEK 11/03/16 [History] Ferrous Sulfate 325 mg PO BID 11/05/16 [History] Gabapentin [Neurontin] 300 mg PO TID 11/05/16 [History] Aspirin 81 mg PO DAILY #30 tab.chew 11/09/16 [Rx] Sertraline [Zoloft] 100 mg PO DAILY 11/13/16 [History] Atorvastatin [Lipitor] 80 mg PO HS tablet 11/15/16 [Rx] Loratadine [Claritin] 10 mg PO DAILY tablet 11/15/16 [Rx] Metoprolol XL (24 HR) Succ [Toprol Xl] 25 mg PO DAILY tab.er.24h 11/15/16 [Rx] Nitroglycerin 0.4 mg SL Q5MIN PRN #0 tab.subl 11/15/16 [Rx] Omeprazole [PriLOSEC] 20 mg PO DAILY@0630 capsule. 11/15/16 [Rx] OxyCODONE/APAP 5/325 [Percocet 5/325 MG] 1 each PO Q8H PRN #6 tablet 11/15/16 [ Rx] Rivaroxaban [Xarelto] 15 mg PO DAILY tablet 11/15/16 [Rx] amLODIPine [Norvasc] 10 mg PO DAILY tablet 11/15/16 [Rx] Allergies/Adverse Reactions: Allergies Erythromycin Base Allergy (Verified 11/05/16 15:53) Rash Date of admission: 11/16/16 16:04 Primary care physician: Ginger Topete Consults: 11/16/16 16:27 Consult to Occupational Therapy [CONS] Routine Comment: Evaluate, develop and implement POC Reason for Consult: deconditioning s/p cva, angina Consult to Physical Therapy [CONS] Routine Comment: Evaluate, develop and implement POC Reason for Consult: deocnditioning s/p cva, angina Consult to Recreational Therapy [CONS] Routine Comment: Evaluate, develop and implement POC Consult to Pressurised Container Filler [CONS] Routine Reason for SW Consult: s/p cva. possible f/u needed. Consult to Speech Therapy [CONS] Routine Comment: Evaluate, develop and implement POC Reason for Consult: s/p cva Call Completed: Yes 11/16/16 16:33 Consult to Physical Medicine/Rehab [CONS] Routine Reason for Consult: s/p cva Call Completed: Yes 11/16/16 16:44 Consult to Physician [CONS] Routine Consulting Provider: Estefany De Leon Reason for Consult: s/p cva Call Completed: Yes Discharging clinician: Grant Cisneros Anticipated date of discharge: 11/18/16 - Patient Status Disposition: Home Health Service Condition: Good Functional capacity at discharge: uses cane/walker Overall status at discharge: patient is progressing back to baseline - Ambulatory Orders Ambulatory Orders: Hemoglobin and Hematocrit [HEME] Time Frame: 3 Days, Location: Determined By Patient - Discharge Instructions Instructions: Ischemic Stroke (DC) Follow Up With: Ginger Woodson MD [Primary Care Provider] - 11/26/16 2:00 pm - Diet and Activity Activity: ambulate only with your walker Diet: advance to your usual diet Interval History: Patient was transferred here for rehabilitation after CVA Hospital course: Ms. Tang is a 81 year old female Patient's done well was discharged home accompanied rifampin - Time Spent with Patient Total time spent providing and/or coordinating discharge services: Less than 30 minutes - Constitutional Vitals: Temp Pulse Resp BP Pulse Ox 97.3 F L 55 16 122/66 95 11/19/16 07:00 11/19/16 07:00 11/19/16 07:00 11/19/16 07:00 11/19/16 07:00 - Head Head exam: Present: atraumatic, normal inspection, normocephalic - Respiratory Respiratory exam: Present: CTAB. Absent: accessory muscle use, rales, rhonchi, wheezes - Cardiovascular Cardiovascular exam: Present: RRR, +S1, +S2. Absent: diastolic murmur, gallop, rubs, systolic murmur
== END 2016-11-19 15:15 | disposition home health service (06) | DRG 57 ==
LOC: INPGRE 11-16 16:04
PROVIDERS: ADMIT Internal Medicine; ATTEND Internal Medicine